=== PATIENT | female | born 1985 | race Caucasian/White ===

== ENCOUNTER → 2017-02-19 | Outpatient (CLI) | payer OTHER ==
[~2017-02-19] MED LIST: GADOBUTROL 7.5 MMOL/7.5 ML VIAL ONE
== END | disposition home or self-care (01) ==
LOC: CFH 10:30
PROVIDERS: ATTEND Surgery
DX: R22.42 Localized swelling, mass and lump, left lower limb (principal)
CPT/HCPCS: 73720; A9585

== ENCOUNTER → 2017-04-04 | Outpatient (CLI) | payer OTHER | END | disposition home or self-care (01) | LOC: CFH 08:55 | PROVIDERS: ATTEND Allergy & Immunology | DX: J01.00 Acute maxillary sinusitis, unspecified (principal); R09.82 Postnasal drip; J02.9 Acute pharyngitis, unspecified | CPT/HCPCS: 70210 ==

== ENCOUNTER 2017-05-06 09:17 | Day surgery (SDC) | payer OTHER ==
[~2017-05-06] VITALS: Ht 167.6 cm; Wt 60.7 kg
[2017-05-06] MEDS ORDERED: BUPIVACAINE/PF 0.5% ONE (10:04)
[2017-05-06] MEDS ORDERED: EPINEPHRINE 1 MG/ML, 1ML ONE (10:04)
[2017-05-06] MEDS ORDERED: MONT10TA6 PO (10:34)
[2017-05-06] MEDS ORDERED: LACTATED RINGERS 1,000 ML IV SCH (10:34)
[2017-05-06] MEDS ORDERED: FLUT9.9S NAS (10:34)
[2017-05-06] MEDS ORDERED: LIDOCAINE 1%, 2ML ONE (10:34)
[2017-05-06] MEDS ORDERED: [UNRECOGNIZED DRUG - OTHER] PO (10:34)
[2017-05-06] MEDS ORDERED: FEXO1TAB25 PO (10:34)
[2017-05-06 10:36] VITALS: BP 128/76
[2017-05-06] MEDS ORDERED: ALBU8.5H3 INH (10:49)
[2017-05-06] MEDS ORDERED: FENTANYL PF 100 MCG/2ML ONE (10:53)
[2017-05-06] MEDS ORDERED: MIDAZOLAM 1 MG/ML, 2ML ONE (10:53)
[2017-05-06] MEDS ORDERED: SCOPOLAMINE PATCH, 1.5MG PATCH.TD72 TD ONE ×3 (10:56→11:00)
[2017-05-06 10:59] LABS: HCG UR OBC PASS
[2017-05-06] MEDS ORDERED: LIDOCAINE 1%, 2ML SQ PRN (11:00)
[2017-05-06] MEDS ORDERED: ONDANSETRON 2MG/ML, 2ML ONE (11:53)
[2017-05-06] MEDS ORDERED: CEFAZOLIN 1,000 MG ONE (11:53)
[2017-05-06] MEDS ORDERED: PROPOFOL 10 MG/ML, 50ML ONE (11:53)
[2017-05-06] MEDS ORDERED: DEXAMETHASONE 4 MG/ML, 1ML ONE (11:53)
[2017-05-06] MEDS ORDERED: PROPOFOL 10 MG/ML, 20ML ONE (11:53)
[2017-05-06] MEDS ORDERED: FENTANYL PF 100 MCG/2ML IV PRN (12:30)
[2017-05-06] MEDS ORDERED: PROMETHAZINE 25 MG/ML, 1ML IV PRN (12:30)
[2017-05-06] MEDS ORDERED: HYDROmorphone 1 MG/ML, 1ML IV PRN (12:30)
[2017-05-06] MEDS ORDERED: MEPERIDINE/PF 25MG/0.5ML IVPush PRN (12:30)
[2017-05-06] MEDS ORDERED: ACETAMINOPHEN 325 MG TABLET PO PRN (12:30)
[2017-05-06] MEDS ORDERED: OXYcodone 5 MG/5 ML ORAL.SOL UDC PO PRN (12:30)
[2017-05-06] MEDS ORDERED: OXYcodone 5 MG/5 ML ORAL.SOL UDC ONE (12:48)
[2017-05-06] MEDS ORDERED: ACETAMINOPHEN 650 MG/20.3 ML UDC ONE (12:48)
== END 2017-05-06 14:50 ==
LOC: OUT 09:17
PROVIDERS: ATTEND Surgery
DX: M79.89 Other specified soft tissue disorders (principal); J45.909 Unspecified asthma, uncomplicated
CPT/HCPCS: 27337; 81025; 88304; J0171; J2250; J3010; J3490; J7120; J0690; J1100; J2405; J2704

== ENCOUNTER → 2018-02-04 | Outpatient (CLI) | payer OTHER ==
[~2018-02-04] MED LIST changes: +ALBU8.5H8 INH; +FEXO1TAB25 PO; +FLUT9.9S NAS; -GADOBUTROL 7.5 MMOL/7.5 ML VIAL ONE; +MONT10TA6 PO; +[UNRECOGNIZED DRUG - OTHER] PO
== END | disposition home or self-care (01) ==
LOC: RAD 12:25
PROVIDERS: ATTEND Internal Medicine Hematology & Oncology
DX: M62.830 Muscle spasm of back (principal); M54.2 Cervicalgia; M54.9 Dorsalgia, unspecified
CPT/HCPCS: 72141; 72146; 72148

== ENCOUNTER 2019-07-07 03:22 | Emergency (ER) | payer OTHER ==
[~2019-07-07] VITALS: Ht 167.6 cm; Wt 64.0 kg
[2019-07-07 03:28] VITALS: BP 146/63
--- NOTE | 2019-07-07 04:23 | NUR ---
PATIENT GIVEN BLANKETS, UPDATED ON PLAN OF CARE. AWAITING FURTHER ORDERS AT THIS TIME.
[2019-07-07] MEDS ORDERED: ONDANSETRON ODT 4 MG PO ONE (04:30)
[2019-07-07] MEDS ORDERED: ONDANSETRON ODT 4 MG ONE (04:30)
[2019-07-07 04:57] LABS: MEAN CORPUSCULAR HEMOGLOBIN 31.8 pg (27.0-34.8); MEAN CORPUSCULAR HGB CONC 33.7 g/dL (32.4-35.8); MEAN CORPUSCULAR VOLUME 94.4 fL (80-100); MEAN PLATELET VOLUME 8.9 fL (7.4-10.4); PLATELET COUNT 232 x10^3/uL (130-400); RED BLOOD COUNT 4.05 x10^6/uL (3.82-5.3); RED CELL DISTRIBUTION WIDTH 12.6 % (9.6-15.2)
[2019-07-07 05:05] LABS: ALBUMIN 3.7 g/dL (3.4-5.0); ANION GAP 7 mmol/L (5-15); CALCIUM 8.2 mg/dL (8.5-10.1); CHLORIDE 108 mmol/L (98-107)
[2019-07-07 05:11] LABS: ALANINE AMINOTRANSFERASE 17 U/L (12-78); ALKALINE PHOSPHATASE 49 U/L (45-117); BILIRUBIN,TOTAL 1.3 mg/dL (0.2-1.0); CREATININE 0.77 mg/dL (0.55-1.02); TOTAL PROTEIN 7.5 g/dL (6.4-8.2)
[2019-07-07 05:33] LABS: MD YES
[2019-07-07 05:35] LABS: <PLATELET ESTIMATE> ADEQUATE; <PLT MORPHOLOGY> NORMAL PLT MORPH; <RBC MORPHOLOGY> NORMAL; BAND#(MANUAL) 0.77 x10^3/uL; BANDS%(MANUAL) 6 % (0-7); EOS#(MANUAL) 0.13 x10^3/uL (0.0-0.4); EOS% (MANUAL) 1 % (1-7); LYMPHS% (MANUAL) 7 % (22-44); MONOS#(MANUAL) 0.13 x10^3/uL (0.3-2.7); MONOS% (MANUAL) 1 % (2-9); SEG#(MANUAL) 10.97 x10^3/uL (1.8-6.8); SEGS% (MANUAL) 85 % (42-75)
== END 2019-07-07 06:05 | disposition home or self-care (01) ==
LOC: ED 05:20
DX: R11.2 Nausea with vomiting, unspecified (principal); R06.02 Shortness of breath; J45.909 Unspecified asthma, uncomplicated; Z87.891 Personal history of nicotine dependence
CPT/HCPCS: 36415; 80053; 83690; 84703; 85025; 99283; Q0162

== ENCOUNTER 2020-02-15 07:46 | Outpatient (CLI) | payer OTHER ==
[2020-02-15] MEDS ORDERED: OMNIPAQUE 300 MG/ML, 10ML VIAL ONE (08:40)
== END 2020-02-15 23:59 | disposition home or self-care (01) ==
LOC: RAD 07:46
PROVIDERS: ATTEND Specialist
DX: N73.6 Female pelvic peritoneal adhesions (postinfective) (principal)
CPT/HCPCS: 58340; 74740; Q9967

== ENCOUNTER → 2020-08-22 | Outpatient (CLI) | payer OTHER | END | disposition home or self-care (01) | LOC: LAB 09:53 | PROVIDERS: ATTEND Nurse Practitioner Primary Care | DX: E55.9 Vitamin D deficiency, unspecified (principal) | CPT/HCPCS: 36415; 82306 ==

== ENCOUNTER → 2020-11-16 | Outpatient (CLI) | payer OTHER ==
[2020-11-16 10:31] LABS: ALANINE AMINOTRANSFERASE 22 U/L (12-78); ALBUMIN 4.1 g/dL (3.4-5.0); ANION GAP 4 mmol/L (5-15); CHLORIDE 105 mmol/L (98-107)
[2020-11-16 10:38] LABS: BASOPHILS % (AUTO) 1 % (0-1); EOSINOPHILS % (AUTO) 4 % (1-7); LYMPHOCYTES % (AUTO) 33 % (22-44); MEAN CORPUSCULAR HEMOGLOBIN 31.6 pg (27.0-34.8); MEAN CORPUSCULAR HGB CONC 34.5 g/dL (32.4-35.8); MEAN PLATELET VOLUME 8.6 fL (7.4-10.4); MONOCYTES % (AUTO) 8 % (2-9); NEUTROPHILS % (AUTO) 53 % (42-75); PLATELET COUNT 252 x10^3/uL (130-400); RED BLOOD COUNT 4.27 x10^6/uL (3.82-5.3); RED CELL DISTRIBUTION WIDTH 12.9 % (9.6-15.2)
[2020-11-16 10:40] LABS: MD NO
[2020-11-16 10:56] LABS: ALKALINE PHOSPHATASE 45 U/L (45-117); BILIRUBIN,TOTAL 0.5 mg/dL (0.2-1.0); CHOL/HDL RATIO 2.1; CHOLESTEROL, TOTAL 147 mg/dL (140-239); CREATININE 0.72 mg/dL (0.55-1.02); HDL CHOL % 48 % (28-40); HDL CHOLESTEROL (DIRECT) 71 mg/dL (40-60); LDL CHOLESTEROL,CALCULATED 66 mg/dL (54-169); LDL/HDL RATIO 0.9 (0.5-3.0); TOTAL PROTEIN 7.9 g/dL (6.4-8.2); TRIGLYCERIDES 52 mg/dL (50-200); VLDL CHOLESTEROL 10 mg/dL (0-25)
[2020-11-16 10:57] LABS: FOLATE LEVEL > 20.0 ng/mL (3.1-17.5)
== END | disposition home or self-care (01) ==
LOC: LAB 10:04
PROVIDERS: ATTEND Nurse Practitioner Family
DX: Z00.00 Encounter for general adult medical examination without abnormal findings (principal); Z13.29 Encounter for screening for other suspected endocrine disorder; Z13.0 Encounter for screening for diseases of the blood and blood-forming organs and certain disorders involving the immune mechanism; Z13.21 Encounter for screening for nutritional disorder; Z13.228 Encounter for screening for other metabolic disorders; R22.1 Localized swelling, mass and lump, neck
CPT/HCPCS: 36415; 80053; 80061; 82306; 82607; 82746; 83036; 84443; 85025

== ENCOUNTER 2020-12-07 14:13 | Outpatient (CLI) | payer OTHER | END 2020-12-07 23:59 | disposition home or self-care (01) | LOC: CFH 14:13 | PROVIDERS: ATTEND Obstetrics & Gynecology Reproductive Endocrinology | DX: Z31.41 Encounter for fertility testing (principal); N83.01 Follicular cyst of right ovary | CPT/HCPCS: 58340; 76831 ==